=== PATIENT | female | born 1965 | race Asian ===

== ENCOUNTER 2019-06-13 10:09 | Emergency (ER) | payer OTHER ==
[~2019-06-13] VITALS: Ht 154.9 cm; Wt 63.5 kg
[2019-06-13 10:27] VITALS: Ht 154.9 cm; Wt 63.5 kg
[2019-06-13 11:00] VITALS: BP 122/77
== END 2019-06-13 11:00 | disposition home or self-care (01) ==
LOC: ED 10:09
DX: J06.9 Acute upper respiratory infection, unspecified (principal); I10 Essential (primary) hypertension